=== PATIENT | female | born 1970 | race Caucasian/White ===

== ENCOUNTER → 2017-02-15 | Outpatient (CLI) | payer BC | LOC: BICMAMMO 08:16 | PROVIDERS: ATTEND Family Medicine | DX: Z12.31 Encounter for screening mammogram for malignant neoplasm of breast (principal); N63.20 Unspecified lump in the left breast, unspecified quadrant | CPT/HCPCS: 77067; G0202 ==

== ENCOUNTER 2017-02-26 07:19 | Outpatient (CLI) | payer BC | END 2017-02-26 07:20 | disposition home or self-care (01) | LOC: BICMAMMO 07:19 | PROVIDERS: ATTEND Family Medicine | DX: R92.2 Inconclusive mammogram (principal) | CPT/HCPCS: G0206-LT; G0279 ==

== ENCOUNTER → 2017-03-10 | Day surgery (SDC) | payer BC | LOC: BICULT 08:00 | PROVIDERS: ATTEND Family Medicine | PROC: 0HBU3ZX Excision of Left Breast, Percutaneous Approach, Diagnostic (ICD-10-PCS; principal; 2017-03-10) | DX: N63.22 Unspecified lump in the left breast, upper inner quadrant (principal) | CPT/HCPCS: 19083 ==

== ENCOUNTER 2019-10-18 13:42 | Outpatient (CLI) | payer OTHER ==
--- NOTE | 2019-10-18 14:46 | ULT ---
Pelvic sonogram transabdominal and transvaginal imaging with duplex evaluation HISTORY: Abnormal pelvic bleeding. FINDINGS: Urinary bladder is unremarkable. Uterus has a heterogeneous echotexture, is slightly retrov erted, and measures up to 10.3 cm. Small nabothian cysts arise from the cervix. Endometrium is homogeneous and 1.3 cm thickness. No free fluid evident within the pelvis. Right ovary is 2.6 cm and left is 4.0 cm. Good color and spectral Doppler flow within each ovary. Dom inant follicle of the left ovary is 2.0 cm. IMPRESSION : Slightly thickened endometrium 1.4 cm. Please correlate with menstrual stage. No focal abnormalities are demonstrated.
== END 2019-10-18 13:43 | disposition home or self-care (01) ==
LOC: BICULT 13:42
PROVIDERS: ATTEND Physician Assistant
DX: N93.9 Abnormal uterine and vaginal bleeding, unspecified (principal); R93.89 Abnormal findings on diagnostic imaging of other specified body structures
CPT/HCPCS: 76856

== ENCOUNTER 2019-11-16 07:56 | Outpatient (CLI) | payer OTHER ==
--- NOTE | 2019-11-16 08:26 | MMO ---
Bilateral MAMMO Bilat Screen [facility]. CLINICAL HISTORY: Patient is 49 years old and is seen for screening. The patient has no family history of breast cancer. The patient has no personal history of cancer. The patient has a history of right Ultrasound Guided Core Biopsy in September, - benign. VIEWS: The views performed were: bilateral craniocaudal with tomosynthesis and bilateral mediolateral oblique with tomosynthesis. FILMS COMPARED: The present examination has been compared to prior imaging studies performed at [facility] on 09/21/2012, 09/22/2012, 02/15/2017 and 02/26/2017. This study has been interpreted with the assistance of computer-aided detection. MAMMOGRAM FINDINGS: There are scattered fibroglandular densities. Benign calcifications are noted bilaterally. Nodularity is stable since 2017. There are no suspicious masses, suspicious calcifications, or new areas of architectural distortion. IMPRESSION: THERE IS NO MAMMOGRAPHIC EVIDENCE OF MALIGNANCY. A ROUTINE FOLLOW-UP MAMMOGRAM IN 1 YEAR IS RECOMMENDED. THE RESULTS OF THIS EXAM WERE SENT TO THE PATIENT. ACR BI-RADS Category 2 - Benign finding MAMMOGRAPHY NOTE: 1. A negative mammogram report should not delay a biopsy if a dominant of clinically suspicious mass is present. 2. Approximately 10% to 15% of breast cancers are not detected by mammography. 3. Adenosis and dense breasts may obscure an underlying neoplasm. Reported by: MARIA ESTHER ZELAYA MD Electonically Signed: [id number]
== END 2019-11-16 07:57 | disposition home or self-care (01) ==
LOC: BICMAMMO 07:56
PROVIDERS: ATTEND Physician Assistant
DX: Z12.31 Encounter for screening mammogram for malignant neoplasm of breast (principal); Z91.89 Other specified personal risk factors, not elsewhere classified
CPT/HCPCS: 77063; 77067